=== PATIENT | male | born 1995 | race African-American/Black ===

== ENCOUNTER 2021-08-18 01:49 | Emergency (ER) | payer OTHER ==
[~2021-08-18] VITALS: Ht 180.3 cm; Wt 63.6 kg
[2021-08-18 03:19] VITALS: BP 134/84
[2021-08-20 05:06] LABS: HIV INTERPRETATION HIV-1 Positive; HIV-1 ANTIBODY(MULTISPOT) Positive (Negative); HIV-2 ANTIBODY(MULTISPOT) Negative (Negative)
== END 2021-08-18 03:34 | disposition home or self-care (01) ==
LOC: EMS 01:51
DX: Z21 Asymptomatic human immunodeficiency virus [HIV] infection status (principal)
CPT/HCPCS: 86701; 86702; 99283